=== PATIENT | male | born 1980 | race Caucasian/White ===

== ENCOUNTER 2025-02-12 16:47 | Emergency (ER) | payer SELFPAY ==
[2025-02-12 16:51] VITALS: BP 211/114
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
[2025-02-12 17:04] VITALS: BP 189/113; BMI 31.5
[2025-02-12 18:00] VITALS: BP 179/113
== END 2025-02-12 19:36 | disposition home or self-care (01) ==
LOC: EMR 16:47
PROVIDERS: EMERGENCY PHYSICIAN Emergency Medicine
DX: S09.90XA Unspecified injury of head, initial encounter (principal); S60.811A Abrasion of right wrist, initial encounter; S80.212A Abrasion, left knee, initial encounter; S00.91XA Abrasion of unspecified part of head, initial encounter; R11.0 Nausea; R42 Dizziness and giddiness; R51.9 Headache, unspecified; W22.10XA Striking against or struck by unspecified automobile airbag, initial encounter; V49.40XA Driver injured in collision with unspecified motor vehicles in traffic accident, initial encounter; Y92.410 Unspecified street and highway as the place of occurrence of the external cause; R03.0 Elevated blood-pressure reading, without diagnosis of hypertension
CPT/HCPCS: 99284; 70450; 71046; 72125